=== PATIENT | female | born 1955 | race Caucasian/White ===

== ENCOUNTER → 2020-03-19 | Outpatient (CLI) | payer OTHER ==
[~2020-03-19] MED LIST: [UNRECOGNIZED DRUG - REMARK]
== END | disposition home or self-care (01) ==
LOC: LAB 13:14 → LAB SHORT 13:14
DX: R05 Cough (principal)
CPT/HCPCS: 87081

== ENCOUNTER → 2020-06-21 | Outpatient (CLI) | payer OTHER | LOC: LAB SHORT 12:26 → LAB 12:26 | DX: L03.116 Cellulitis of left lower limb (principal); L02.416 Cutaneous abscess of left lower limb | CPT/HCPCS: 87070; 87075; 87077; 87147; 87186; 87205 ==

== ENCOUNTER 2021-08-07 11:41 | Emergency (ER) | payer OTHER ==
[~2021-08-07] VITALS: Ht 177.8 cm; Wt 149.7 kg
[2021-08-07 12:43] LABS: BASOPHILS ABSOLUTE AUTO 0.01 K/mm3 (0.00-0.23); BASOPHILS PERCENT AUTO 0 % (0-2); EOSINOPHILS PERCENT AUTO 0 % (0-6); Hematocrit 42.9 % (33.0-51.0); Hemoglobin 14.2 g/dL (11.5-16.0); IMMATURE GRAN ABSOLUTE AUTO 0.01 K/mm3 (0.00-0.10); IMMATURE GRAN PERCENT AUTO 0 % (0-1); LYMPHOCYTES ABSOLUTE AUTO 0.91 K/mm3 (0.84-5.20); LYMPHOCYTES PERCENT AUTO 25 % (21-46); MONOCYTES PERCENT AUTO 8 % (4-13); Mean Corpuscular HGB 28.8 pg (26.0-34.0); Mean Corpuscular HGB Conc 33.1 g/dL (31.5-36.5); Mean Corpuscular Volume 87 fL (80-100); Mean Platelet Volume 10.8 fL (9.1-12.4); NEUTROPHILS ABSOLUTE AUTO 2.47 K/mm3 (1.96-9.15); NEUTROPHILS PERCENT AUTO 67 % (41-73); Platelet Count 109 K/mm3 (150-400); RDW Coefficient Variation 12.9 % (11.7-14.2); RDW Standard Deviation 41.1 fL (35.1-46.3); Red Blood Cell Count 4.93 M/mm3 (3.80-5.20)
[2021-08-07 13:00] LABS: Alanine Aminotransfer (ALT/SGP 65 U/L (12-78); Albumin, Blood 3.1 g/dL (3.4-5.0); Albumin/Globulin Ratio 0.7 (0.8-1.8); Alk Phos 78 U/L (50-136); Anion Gap 6 mmol/L (6-16); Aspartate Aminotrans (AST/SGOT 68 U/L (12-37); Bilirubin, Total 0.4 mg/dL (0.1-1.0); Blood Urea Nitrogen 18 mg/dL (8-24); Bun/Creatinine Ratio 19.8 (12.0-20.0); CO2, Blood 28 mmol/L (21-32); Calcium, Blood 8.8 mg/dL (8.5-10.1); Chloride, Blood 104 mmol/L (98-108); Creatinine, Blood 0.91 mg/dL (0.40-1.00); Globulin, Blood 4.2 g/dL (2.2-4.0); Glomerular Filtration Rate >60 (60-); Glucose, Blood 116 mg/dL (70-99); Potassium, Blood 3.8 mmol/L (3.5-5.5); Sodium, Blood 138 mmol/L (136-145); Total Protein, Blood 7.3 g/dL (6.4-8.2); Troponin I <0.015 ng/mL (0.000-0.040)
[2021-08-07] MEDS ORDERED: DEXA6 PO (15:29)
[2021-08-07] MEDS ORDERED: ONDA4ODT MM (15:29)
== END 2021-08-07 17:10 | disposition home or self-care (01) ==
LOC: ER 11:41
PROVIDERS: Physician Assistant
DX: U07.1 COVID-19 (principal); Z88.1 Allergy status to other antibiotic agents; Z88.8 Allergy status to other drugs, medicaments and biological substances
CPT/HCPCS: 36415; 71045; 71260; 80053; 84484; 85025; 85379; 93005; 93010; 96361; 96374; 99285-25; J2405; J7030; Q9967

== ENCOUNTER 2021-08-10 20:01 | Inpatient (IN) | payer OTHER ==
[~2021-08-10] VITALS: Ht 177.8 cm; Wt 126.4 kg
[~2021-08-10 20:01] MED LIST changes: +DEXA6 PO; +ONDA4ODT MM
[2021-08-10 20:45] LABS: BASOPHILS ABSOLUTE AUTO 0.02 K/mm3 (0.00-0.23); BASOPHILS PERCENT AUTO 0 % (0-2); EOSINOPHILS PERCENT AUTO 0 % (0-6); Hematocrit 40.1 % (33.0-51.0); Hemoglobin 13.3 g/dL (11.5-16.0); IMMATURE GRAN PERCENT AUTO 2 % (0-1); LYMPHOCYTES PERCENT AUTO 13 % (21-46); MONOCYTES ABSOLUTE AUTO 0.35 K/mm3 (0.16-1.47); MONOCYTES PERCENT AUTO 7 % (4-13); Mean Corpuscular HGB 28.9 pg (26.0-34.0); Mean Corpuscular HGB Conc 33.2 g/dL (31.5-36.5); Mean Corpuscular Volume 87 fL (80-100); Mean Platelet Volume 11.1 fL (9.1-12.4); NEUTROPHILS ABSOLUTE AUTO 4.07 K/mm3 (1.96-9.15); NEUTROPHILS PERCENT AUTO 78 % (41-73); Platelet Count 167 K/mm3 (150-400); RDW Standard Deviation 41.2 fL (35.1-46.3); Red Blood Cell Count 4.61 M/mm3 (3.80-5.20); White Blood Cell Count 5.24 K/mm3 (4.00-11.30)
[2021-08-10 20:58] LABS: Alanine Aminotransfer (ALT/SGP 76 U/L (12-78); Albumin, Blood 2.4 g/dL (3.4-5.0); Albumin/Globulin Ratio 0.5 (0.8-1.8); Alk Phos 69 U/L (50-136); Anion Gap 3 mmol/L (6-16); Aspartate Aminotrans (AST/SGOT 57 U/L (12-37); Bilirubin, Total 0.5 mg/dL (0.1-1.0); Blood Urea Nitrogen 16 mg/dL (8-24); Bun/Creatinine Ratio 21.9 (12.0-20.0); CO2, Blood 28 mmol/L (21-32); Calcium, Blood 8.8 mg/dL (8.5-10.1); Chloride, Blood 110 mmol/L (98-108); Creatinine, Blood 0.73 mg/dL (0.40-1.00); Globulin, Blood 4.6 g/dL (2.2-4.0); Glomerular Filtration Rate >60 (60-); Glucose, Blood 154 mg/dL (70-99); Potassium, Blood 3.7 mmol/L (3.5-5.5); Sodium, Blood 141 mmol/L (136-145); Troponin I <0.015 ng/mL (0.000-0.040)
[2021-08-11 04:04] LABS: Alanine Aminotransfer (ALT/SGP 72 U/L (12-78); Albumin, Blood 2.4 g/dL (3.4-5.0); Albumin/Globulin Ratio 0.5 (0.8-1.8); Alk Phos 66 U/L (50-136); Anion Gap 5 mmol/L (6-16); Aspartate Aminotrans (AST/SGOT 58 U/L (12-37); Bilirubin, Total 0.5 mg/dL (0.1-1.0); Blood Urea Nitrogen 16 mg/dL (8-24); Bun/Creatinine Ratio 23.4 (12.0-20.0); CO2, Blood 28 mmol/L (21-32); Calcium, Blood 8.5 mg/dL (8.5-10.1); Chloride, Blood 108 mmol/L (98-108); Creatinine, Blood 0.68 mg/dL (0.40-1.00); Globulin, Blood 4.4 g/dL (2.2-4.0); Glomerular Filtration Rate >60 (60-); Glucose, Blood 114 mg/dL (70-99); Potassium, Blood 4.1 mmol/L (3.5-5.5); Sodium, Blood 141 mmol/L (136-145); Total Protein, Blood 6.8 g/dL (6.4-8.2)
[2021-08-11 04:15] LABS: BASOPHILS ABSOLUTE AUTO 0.01 K/mm3 (0.00-0.23); BASOPHILS PERCENT AUTO 0 % (0-2); EOSINOPHILS PERCENT AUTO 0 % (0-6); Hematocrit 40.2 % (33.0-51.0); Hemoglobin 12.9 g/dL (11.5-16.0); IMMATURE GRAN ABSOLUTE AUTO 0.08 K/mm3 (0.00-0.10); IMMATURE GRAN PERCENT AUTO 1 % (0-1); LYMPHOCYTES ABSOLUTE AUTO 0.65 K/mm3 (0.84-5.20); LYMPHOCYTES PERCENT AUTO 10 % (21-46); MONOCYTES ABSOLUTE AUTO 0.42 K/mm3 (0.16-1.47); MONOCYTES PERCENT AUTO 7 % (4-13); Mean Corpuscular HGB 28.2 pg (26.0-34.0); Mean Corpuscular HGB Conc 32.1 g/dL (31.5-36.5); Mean Corpuscular Volume 88 fL (80-100); Mean Platelet Volume 10.9 fL (9.1-12.4); NEUTROPHILS ABSOLUTE AUTO 5.17 K/mm3 (1.96-9.15); NEUTROPHILS PERCENT AUTO 82 % (41-73); Platelet Count 167 K/mm3 (150-400); RDW Standard Deviation 42.2 fL (35.1-46.3); Red Blood Cell Count 4.57 M/mm3 (3.80-5.20); White Blood Cell Count 6.33 K/mm3 (4.00-11.30)
--- NOTE | 2021-08-11 05:44 | NUR ---
Shift Summary Pt arrived from ED at 0230. On arrival, SpO2 read 88% via oxymizer at 15L, RT placed Airvo on at 60L/90% until Pt recovered then switched to NRB at 15L, maintaining >90% SpO2. Pt was able to pivot transfer from cart to bed via stand-by assist. Pt is A&Ox4 and oriented to own limitations. Pt presented with very mild anxiety R/T current illness. Pt has been resting and unable to sleep since arrival. Pt voiced no other concerns or questions.
--- NOTE | 2021-08-11 07:57 | NUR ---
ASSUMPTION OF CARE NOTE PT IS ALERT AND ORIENTED X 4. PT STATED SHE DID NOT GET MUCH REST LAST NIGHT. SPO2 REMAINS >95% VIA NON-REBREATHER. PT IS AFEBRILE AND SBP RANGES IN 120'S. PT DENIED CHEST PAIN/PRESSURE. PER REPORT PT CAN AMBULATE TO BEDSIDE COMMODE W/ PIVOT ASSIST. PT IS CURRENTLY NPO; WILL COMMUNICATE TO DOCTOR ABOUT ORDERING DIET AND TRIALING HIGH FLOW NC. PT CURRENTLY RESTING AND WATCHING TV, CALL LIGHT IN REACH. WILL CONTINUE TO MONITOR.
--- NOTE | 2021-08-11 11:32 | NUR ---
CARE NOTE PT ALERT AND ORIENTED X 4 AND IS PLEASANT/COOPERATIVE W/ CARE. PT DENIED PAIN BUT STATED SHE "FEELS CRUMMY." PT ABLE TO GET SOME SLEEP THIS AM. SPO2 REMAINS >90% @ 15L/MIN VIA NON-REBREATHER. CALL LIGHT IN REACH. WILL CONTINUE TO MONITOR.
--- NOTE | 2021-08-11 12:31 | NUR ---
CARE NOTE IN ROOM W/ RESPIRATORY THERAPY NOW. PT WILL NOW BE ON HEATED HUMIDIFIED HIGH FLOW NC. SPO2 AT 90%. CALL LIGHT IN REACH. WILL CONTINUE TO MONITOR.
--- NOTE | 2021-08-11 18:18 | NUR ---
SHIFT SUMMARY PT IS ON HEATED HUMIDIFIED HIGH FLOW NASAL CANNULA @ 50L/MIN, 85% FIO2, SPO2 IN 90'S. PT HAS REMAINED ALERT AND ORIENTED X 4 T/O SHIFT AND DID EXPRESS ANXIETY THIS AFTERNOON. PT WAS MEDICATED FOR ANXIETY PER ORDERS AND WAS ABLE TO TAKE A NAP THIS AFTERNOON. PERIPHERAL IV IN R HAND IS SALINE LOCKED, DRESSING IS DRY, CLEAN/INTACT. PT REMAINS ON FULL LIQUID DIET BUT HAD VERY LITTLE INTAKE TODAY. THIS NURSE SPOKE W/ DR DICKENS ABOUT STARTING FLUIDS, ORDERS FOR NS @ 100ML/HR ORDERED. PT WAS A SBA TO BEDSIDE COMMODE AND SATURATIONS RANGED 86-90. SATURATIONS RETURNED TO >90% AT REST. NO OTHER ACUTE CHANGES NOTED. CALL LIGHT IN REACH. WILL CONTINUE TO MONITOR.
--- NOTE | 2021-08-11 19:55 | NUR ---
ASSUMED CARE PT IS ALERT AND ORIENTED X4. PT DENIES CHEST PAIN OR PRESSURE. DENIES GENERAL PAIN. PT DENIES CALF TENDERNESS. VITALS ARE STABLE AND IS ON HIGH FLOW THERAPY OF 50L 90%FIO2 WITH SATS OF 92%. PT REPORTS UNPRODUCTIVE COUGH. PT IS ABLE TO USE BSC BUT DESATS TO 80% UPON EXERTION. CALL LIGHT IS WITHIN REACH WILL CONTINUE TO MONITOR.
--- NOTE | 2021-08-11 20:45 | NUR ---
DESAT PT CONTINUOUS BIOX ALARMING W/ PT DESAT TO 79% ON AIRVO @ 50L, FIO2 90%. PT LYING IN BED, W/ NO ACTIVITY NOTED. AIRVO TEMPORARILY INCREASED TO 60L, FIO2 100%. PT ENCOURAGED TO PRONE W/ PT REFUSAL D/T "BACK PAIN". PT CAUTIONED ABOUT HIGH AIRVO SETTINGS & LIMITS W/ PT CONTINUED REFUSAL. PT THEN COUGHING, PRN COUGH MEDICATION PROVIDED PER EMAR. SPO2 W/ SLOW IMPROVAL. PT THEN ABLE TO BE TITRATED BACK DOWN TO 50L, FIO2 90%.
[2021-08-12 03:55] LABS: Hematocrit 39.1 % (33.0-51.0); Hemoglobin 12.6 g/dL (11.5-16.0); Mean Corpuscular HGB 28.5 pg (26.0-34.0); Mean Corpuscular HGB Conc 32.2 g/dL (31.5-36.5); Mean Corpuscular Volume 89 fL (80-100); Mean Platelet Volume 10.9 fL (9.1-12.4); Platelet Count 210 K/mm3 (150-400); RDW Coefficient Variation 12.8 % (11.7-14.2); RDW Standard Deviation 41.8 fL (35.1-46.3); Red Blood Cell Count 4.42 M/mm3 (3.80-5.20)
[2021-08-12 04:13] LABS: Alanine Aminotransfer (ALT/SGP 134 U/L (12-78); Albumin, Blood 2.1 g/dL (3.4-5.0); Albumin/Globulin Ratio 0.5 (0.8-1.8); Alk Phos 68 U/L (50-136); Anion Gap 2 mmol/L (6-16); Aspartate Aminotrans (AST/SGOT 96 U/L (12-37); Bilirubin, Total 0.5 mg/dL (0.1-1.0); Blood Urea Nitrogen 23 mg/dL (8-24); Bun/Creatinine Ratio 35.4 (12.0-20.0); CO2, Blood 28 mmol/L (21-32); Calcium, Blood 8.8 mg/dL (8.5-10.1); Chloride, Blood 112 mmol/L (98-108); Creatinine, Blood 0.65 mg/dL (0.40-1.00); Globulin, Blood 4.3 g/dL (2.2-4.0); Glomerular Filtration Rate >60 (60-); Glucose, Blood 145 mg/dL (70-99); Magnesium, Blood 2.8 mg/dL (1.6-2.4); Sodium, Blood 142 mmol/L (136-145); Total Protein, Blood 6.4 g/dL (6.4-8.2)
--- NOTE | 2021-08-12 06:00 | NUR ---
SHIFT SUMMARY PT IS ALERT AND ORIENTED. BP HAS BEEN STABLE. SHE HAS BEEN BRADYCARDIC IN THE HIGH 40'S. DENIES CARDIAC CHEST PAIN OR PRESSURE STS ONLY FROM COUGH. OXYGEN DEMAND HAS INCREASED AND IS NOW ON AIRVO 60L 90%FIO2 WITH SATS DROPPING INTO LOW 80'S WITH COUGHING. PT WAS EDUCATED ABOUT PRONING AND WAS ABLE TO PRONE AROUND 0500. PT STS THAT SHE HAS A HISTORY OF BACK PAIN AND PRONING WILL BE DIFFICULT FOR HER. THIS NURSE NOTIFIED HER THAT IF SHE BECOMES UNCOMFORTABLE WE CAN HELP WITH PAIN MANAGEMENT. PT HAS HAD A STRONG NON PRODUCTIVE COUGH T/O THE NIGHT AND HAS BEEN MEDICATED PER EMAR. CALL LIGHT IS WITHIN REACH.
--- NOTE | 2021-08-12 09:39 | NUR ---
[id number]: SAFE HANDOFF REC'D, ASSUMED CARE OF PT. PT IS ON HIFLOW O2 VIA AIRVO, CURRENTLY SET AT 60L/90% WITH SPO2 AT REST IN THE MID 90S, RESPIRATIONS ARE MILDLY TACHYPIC AND SHALLOW. SB WITH HR IN THE 50S PER AUTOMOTIVE GENERATOR REPAIRER. PT DENIES PAIN OR DISCOMFORT OTHER THAN DYSPNEA. PT REPORTS NEEDING TO VOID, ASSISTED TO THE BSC, SPO2 DROPPED DOWN TO THE UPPER 70S AND QUITE SLOW TO RECOVER AFTER GETTING BACK TO BED, ONCE SHE DID RECOVER AND THEN ATTEMPTED TO EAT BREAKFAST AND SPO2 DROPPED AGAIN TO THE MID TO UPPER 70S. PT DENIES ASPIRATION OF FOOD, PT PLACED ON NRB OVER HER HIFLOW CANNULA SHE CONTINUES TO MOUTH BREATHE. SPO2 UP TO THE MID 90S WITH THAT INTERVENTION, 929: SPOKE WITH DR DICKENS REGARDING THE LIKELY NEED FOR A GILMAN CATH AND VERBAL ORDER TAKEN FOR SUCH. SPOKE WITH PT'S ADY HOGAN AND HE STATES THAT PT DOES USE CPAP FOR SLEEP APNEA.
[2021-08-12 10:13] LABS: Source, Urine Catheter
[2021-08-12 10:21] LABS: Appearance, Urine Hazy (Clear); Bilirubin, Urine Neg (Neg); Blood, Urine Neg (Neg); Color, Urine Amber (P-Yellow); Glucose Qualitative, Urine Neg (Neg); Ketones, Urine Neg (Neg); Leukocyte Esterase, Urine Neg (Neg); Nitrite, Urine Neg (Neg); Protein, Urine 2+ (Neg); Urobilinogen, Urine 3+ (Normal)
[2021-08-12 11:04] LABS: Red Blood Cells, Urine 0-2 /hpf (0-2); White Blood Cells, Urine 0-2 /hpf (0-5)
[2021-08-12 11:05] LABS: Mucus Heavy (0-Heavy)
[2021-08-12 11:12] LABS: Squamous Epithelial Cells Few /hpf (Few)
[2021-08-12 11:16] LABS: Bacteria Rare /hpf
--- NOTE | 2021-08-12 11:31 | NUR ---
1100: PT TRANSFERRED TO ICU FOR CLOSER MONITORING, TRANPORTED IN BED ON HIFLOW O2 WELL NRB MASK AND WAS ABLE TO MAINTAIN SPO2 ON THAT.
--- NOTE | 2021-08-12 11:45 | NUR ---
TRANSFER TO ICU: REPORT RECEIVED FROM JENNIFER Garcia, PCU CIGAR BINDER. THE PT ARRIVED TO ICU-03 AT APPROX 1125 & IS ALERT/ ORIENTED TO ALL ON ARRIVAL. GENERALIZED WEAKNESS/ FATIGUE. LS ARE DIM/ COARSE T/O, PT ON AIRVO W/ SETTINGS: 55 L/MIN & 80% FIO2, PT ALSO ON NRB AT 15 L/MIN W/ O2 SATS > 90% ON AVG, DESATS TO 88% W/ COUGHING EPISODES. MONITOR SHOWS SB W/ HR 50s, HTN W/ INCREASED STIMULUS OR DYSPNEA. BT x4, PT HAS NO GI COMPLAINTS. GILMAN PATENT/ DRAINING. SKIN CONDITION OVERALL INTACT, Q2H REPOSITIONING TO MAINTAIN SKIN INTEGRITY. CALL TO DR DICKENS REGARDING THIS PT's TX TO ICU. SHE AGREES THAT THE PT SHOULD BE ICU STATUS & WOULD LIKE DR ALVARADO TO BE CONSULTED ALSO, ORDERS PLACED. SHE WILL SEE THE PT LATER TODAY. DR ALVARADO MADE AWARE OF THIS CONSULT BY THIS RN & WILL SEE THE PT SOON. PT's VSS, NO ACUTE DISTRESS. WILL CONTINUE TO MONITOR & UPDATE NEEDED.
--- NOTE | 2021-08-12 18:03 | NUR ---
SHIFT SUMMARY: PT REMAINS A&O TO ALL, ABLE TO MAKE NEEDS KNOWN. SHE IS USING CPAP 14, 85% FIO2 & TOLERATING WELL W/ O2 SATS > 90% ON AVG. LS DIM/ COARSE T/O. THE PT CONVERTED FROM SB TO AFIB W/ RVR, HR 140s AT APPROX 1521. BP STABLE AT THIS TIME & PT STS FEELING NO CP, PALPITATIONS, OR ANYTHING "DIFFERENT." MONITOR CURRENTLY SHOWS AFIB W/ HR 90-120s, BP STABLE AFTER CARDIZEM IVP PER EMAR & W/ CARDIZEM NOW INFUSING AT 5 MG/HR. PT HAS NO GI COMPLAINTS, NPO SINCE TRANSFER TO ICU R/T RESPIRATORY STATUS. GILMAN PATENT/ DRAINING YELLOW URINE. SKIN CONDITION OVERALL INTACT, Q2H REPOSITIONING TO MAINTAIN SKIN INTEGRITY. WILL CONTINUE TO MONITOR & REPORT OFF TO ONCOMING.
--- NOTE | 2021-08-12 19:30 | NUR ---
ASSUMPTION OF CARE RECEIVED REPORT AT 1905 FROM ORIANA DE PAZ. ASSUMED CARE OF PATIENT. PATIENT ALERT/ORIENTED IN BED WITH CPAP 14 FIO2 85% IN PLACE. 02 SATS ABOVE 95%. HEART RATE 120-130'S, STABLE B/P INCREASED CARDIZEM TO 10MG/HR FOR HR CONTROL. EDUCATED PATIENT REGARDING PRONING AND BENEFITS OF. PATIENT VERBALIZED UNDERSTANDING AND STATED "LETS GIVE IT A TRY". WILL PRONE UPON ADMINSRATION OF HS MEDICATIONS. REVEIWING ORDERS, WILL TREAT PRESCRIBED.
--- NOTE | 2021-08-12 22:10 | NUR ---
REPOSITION PATIENT DECLINED REPOSITIONING, REMAINS FAR RIGHT SIDE. RESTING COMFORTABLY WITH STABLE VITALS.
--- NOTE | 2021-08-12 23:00 | NUR ---
HEADACHE PATIENT USING CALL LIGHT REQUESTING TYLENOL FOR A HEADACHE. NOTIFIED DR. PATTERSON, RECEIVED ORDERS AND MEDICATED PRESCRIBED. WILL MONITOR FOR EFFECT.
--- NOTE | 2021-08-12 23:59 | NUR ---
REASSESSMENT NO ACUTE CHANGES FROM PREVIOUS ASSESSMENT. PATIENT STATES HEADACHE HAS RESOLVED, COUGHING IS IMPROVED SINCE GUAFENISIN GIVEN. TOLERATING CPAP 14, FIO2 85% WELL WITH SATS ABOVE 95%. VITALS STABLE, REMAINS IN AFIB RATE CONTROLLED ON CARDIZEM OF 5MG/HR. CONTINUING TO MONITOR.
--- NOTE | 2021-08-13 02:58 | NUR ---
RHYTHM CHANGES PATIENT CONVERTED TO SB/SR RATE 40-50'S AT 0238. VITALS STABLE, CARDIZEM REMAINED OFF. PATIENT A/O, REMAINS TOLERATING CPAP WITH SETTINGS UNCHANGED.
[2021-08-13 03:44] LABS: Hematocrit 38.7 % (33.0-51.0); Hemoglobin 12.6 g/dL (11.5-16.0); Mean Corpuscular HGB 28.8 pg (26.0-34.0); Mean Corpuscular HGB Conc 32.6 g/dL (31.5-36.5); Mean Corpuscular Volume 88 fL (80-100); Mean Platelet Volume 10.7 fL (9.1-12.4); Platelet Count 239 K/mm3 (150-400); RDW Coefficient Variation 12.9 % (11.7-14.2); RDW Standard Deviation 42.1 fL (35.1-46.3); Red Blood Cell Count 4.38 M/mm3 (3.80-5.20); White Blood Cell Count 8.93 K/mm3 (4.00-11.30)
--- NOTE | 2021-08-13 04:00 | NUR ---
REASSESSMENT NO ACUTE CHANGES FROM PREVIOUS ASSESSMENT. PATIENT TOLERATING CPAP 15, FIO2 85% WITH 02 SATS ABOVE 95%. SIPS OF WATER AND CRANBERRY JUICE PROVIDED PER PATIENT REQUEST. TOLERATED BREAK FROM CPAP FOR SEVERAL MINUTES, LOWEST 02 SAT OF 88%, RECOVERED QUICKLY BACK TO 96% WHEN CPAP PLACED. STRONG, MOIST COUGH PRESENT. CALL LIGHT IN REACH.
[2021-08-13 04:02] LABS: Alanine Aminotransfer (ALT/SGP 97 U/L (12-78); Albumin, Blood 1.9 g/dL (3.4-5.0); Albumin/Globulin Ratio 0.5 (0.8-1.8); Alk Phos 64 U/L (50-136); Anion Gap 3 mmol/L (6-16); Aspartate Aminotrans (AST/SGOT 39 U/L (12-37); Bilirubin, Total 0.5 mg/dL (0.1-1.0); Blood Urea Nitrogen 23 mg/dL (8-24); Bun/Creatinine Ratio 37.8 (12.0-20.0); CO2, Blood 28 mmol/L (21-32); Calcium, Blood 8.4 mg/dL (8.5-10.1); Chloride, Blood 111 mmol/L (98-108); Creatinine, Blood 0.61 mg/dL (0.40-1.00); Globulin, Blood 3.9 g/dL (2.2-4.0); Glomerular Filtration Rate >60 (60-); Glucose, Blood 136 mg/dL (70-99); Magnesium, Blood 2.5 mg/dL (1.6-2.4); Phosphorus, Blood 3.5 mg/dL (2.5-4.9); Potassium, Blood 4.1 mmol/L (3.5-5.5); Sodium, Blood 142 mmol/L (136-145); Total Protein, Blood 5.8 g/dL (6.4-8.2)
--- NOTE | 2021-08-13 06:16 | NUR ---
SHIFT SUMMARY PATIENT ALERT AND ORIENTED THROUGH SHIFT. ATTEMPTED PRONING, TOLERATED FOR 30 MINUTES. BEGAN SHIFT ON CARDIZEM 5MG/HR FOR HEART RATE CONTROL, AND AFIB RHYTHM, INCREASED CARDIZEM TO 10MG/HR CHARTED. AT 0238 PATIENT CONVERTED TO SINUS RICARDO RATE 40-50'S. MAINTAINED STABLE B/P'S. CPAP TOLERATED AT 14, FIO2 85% WITH 02 SATS ABOVE 95%. MEDICATED FOR COUGH AND HEADACHE WHICH RESOLVED WITH CHARTED PRN MEDICATIONS. REVIEWED LABS WITH NO REPLACEMENTS NEEDED. CALL LIGHT IN REACH, WILL REPORT TO ONCOMING RN.
--- NOTE | 2021-08-13 15:29 | NUR ---
Patient is lying in bed and alert. Patient tells me about how sick she is and how scared she is. She talks about her Faith devonte and the multiple family and friends praying for her. She also talks about some painful family unit complications. I provide anxiety containment, scripture reading, therapeutic listening and prayer. Patient responds well to all interventions and displays evidence of increased peace. I will continue to remain available to patient and family.
--- NOTE | 2021-08-13 18:45 | NUR ---
Ms. Goodman remains on the Bipap with CPAP settings: 12 and 60% FiO2. She denies shortness of breath although desats to 79% on airvo during meals. She has a persistent and strong cough. PRN guaifenesin-codeine and tessalon pearls were administered and provided relief. Physical therapy was consulted and helped the patient sit at the edge of her bed. PT's assessment was that the patient was strong, though desatted during coughing spells. PT recommends getting the patient up into a chair. Suggested transferring to chair to Ms. Goodman and she declined. Provided Ms. Villanueva with education on the importance of mobility related to her recovery. Patient verbalized understanding and stated, "I'm tired". Ms. Goodman stated that she would try to get into a chair tomorrow.
--- NOTE | 2021-08-13 20:27 | NUR ---
ASSUMED CARE @1900 PATIENT IS ALERT AND ORIENTED X4. LUNGS COARSE TO DIMINISHED T/O, NONPRODUCTIVE COUGH. CPAP 12, 60%, 02 SATS 93%. SB 40s-50s. BOWEL TONES ACTIVE. GILMAN DRAINING YELLOW URINE. PATIENT ABLE TO REPOSITION SELF, ASSITANCE PROVIDED NEEDED. TOLERATES SIPS OF WATER WELL. SISTER CALLED AND UPDATE PROVIDED.
--- NOTE | 2021-08-14 05:16 | NUR ---
PATIENT REMAINED ALERT AND ORIENTED THROUGH THE NIGHT. CPAP SETTINGS UNCHANGED 02 SATS >90%. TWO PERSON ASSIT WITH REPOSITIONING. ORAL CARE PROVIDED AND PATIENT ABLE TO TOLERATE SIPS OF WATER. REPORT GIVEN TO DOLORES DE PAZ, PATIENT TRANSFERRED TO PCU 14 AT APPROX 0500.
--- NOTE | 2021-08-14 06:11 | NUR ---
shift summary pt transferred to pcu from icu at 0500 - alert and oriented, able to make needs known. cooperative with plan of care. sats >90% on cpap settings. tele reading sinus iglesia 40's. campbell in place, draining to gravity. no c/o pain. no wounds. ivf running. no c/o pain. vss. call light within reach, bed in lowest position. will continue to monitor.
--- NOTE | 2021-08-14 12:30 | NUR ---
[id number]: SAFE HANDOFF REC'D, ASSUMED CARE OF PT, ASSESSMENT COMPLETED, PT ON CPAP OVERNIGHT, PLACED ON AIRVO PER RT BUT DID NOT TOLERATE (SPO2 DOWN TO THE LOW 80S) AND PLACED BACK ON CPAP AT 55%. PT DENIES PAIN, STATES THAT SHE IS FEELING A LITTLE BETTER. LR INFUSING AT 100 MLS/HR, PT CONTINUES ON STEROIDS AND ENOXAPARIN. [id number]: PLACED PT ON AIRVO IN ORDER TO EAT LUNCH, PT ABLE TO TOLERATE APPROX 15 MINUTES AT WHICH POINT HER SPO2 DECREASED TO 78% AND WAS PLACED BACK ON CPAP, INITALLY AT 100% FIO2 TO RECOVER AND THEN BACK TO 55%.
[2021-08-15 04:07] LABS: Hematocrit 37.4 % (33.0-51.0); Hemoglobin 12.3 g/dL (11.5-16.0); Mean Corpuscular HGB 28.8 pg (26.0-34.0); Mean Corpuscular HGB Conc 32.9 g/dL (31.5-36.5); Mean Corpuscular Volume 88 fL (80-100); Mean Platelet Volume 10.7 fL (9.1-12.4); Platelet Count 256 K/mm3 (150-400); RDW Coefficient Variation 12.4 % (11.7-14.2); RDW Standard Deviation 39.8 fL (35.1-46.3); Red Blood Cell Count 4.27 M/mm3 (3.80-5.20); White Blood Cell Count 8.89 K/mm3 (4.00-11.30)
[2021-08-15 04:22] LABS: Albumin, Blood 1.8 g/dL (3.4-5.0); Anion Gap 1 mmol/L (6-16); Blood Urea Nitrogen 20 mg/dL (8-24); Bun/Creatinine Ratio 34.2 (12.0-20.0); CO2, Blood 32 mmol/L (21-32); Calcium, Blood 8.6 mg/dL (8.5-10.1); Chloride, Blood 108 mmol/L (98-108); Creatinine, Blood 0.59 mg/dL (0.40-1.00); Glomerular Filtration Rate >60 (60-); Glucose, Blood 184 mg/dL (70-99); Phosphorus, Blood 2.8 mg/dL (2.5-4.9); Sodium, Blood 141 mmol/L (136-145)
--- NOTE | 2021-08-15 06:33 | NUR ---
SHIFT SUMMARY NO ACUTE EVENTS THIS SHIFT. VITAL SIGNS STABLE. TELE READS 50'S SINUS RICARDO AND BP 130'S AND 140'S. GILMAN DRAINING NANCY COLORED URINE TO GRAVITY. IV AND POWER GLIDE SALINE LOCKED. POWERGLIDE DRAWS BLOOD. ON CPAP 10 55% FIO2 AND SATS OVER 90%. PT REMAINS ON FULL LIQUID DIET. DESATS WHILE SWITCHING TO AIRVO FOR DRINKS. WILL CONTINUE TO MONITOR UNTIL REPORT GIVEN TO DAYSGABRIELA DE PAZ
--- NOTE | 2021-08-15 11:01 | NUR ---
[id number]: SAFE HANDOFF REC'D, ASSUMED CARE OF PT, ASSESSMENT COMPLETED. PT IS AWAKE, RESTING IN BED, STATES SHE HAD A GOOD NIGHT, SHE REMAINS ON CPAP AT 55%, SPO2 IN THE LOW 90S WITH THAT, PLACED ON AIRVO FOR BREAKFAST AND SHE DID DESAT TO THE MID 80s WITH THAT, THEN PLACED ON SIDE, ATTEMPTING TO GET PATIENT CLOSE TO PRONE POSSIBLE. [id number]: PT PLACED ON AIRVO AGAIN PER RT BUT SPO2 DROPPED DROPPED TO THE LOW 80s, REQUIRING PT TO BE PLACED BACK ON CPAP, SPO2 INCREASED TO LOW 90s. DR WALTER IN TO SEE PATIENT WELL.
--- NOTE | 2021-08-15 16:08 | NUR ---
Patient is lying in bed and alert. Patient tells me that she is feeling more stable and is resting well. Patient states that she still has a long ways to go and would appreciate prayer. I provide therapeutic listening and prayer. Patient responds well and shows signs of an elevated mood.
--- NOTE | 2021-08-15 19:07 | NUR ---
END OF SHIFT SUMMARY: PT ALTERNATING CPAP AND AIRVO OVER THE COURSE OF DAY, ENCOURAGED AND ASSISTED PT TO MOVE MUCH POSSIBLE AND TO TRY TO GET CLOSE TO PRONE SHE CAN, PT AGREEABLE TO THIS. APPETITE SLIGHTLY IMPROVED TODAY, PT ABLE TO TALK ON PHONE TO HER FAMILY ON SEVERAL OCCASIONS WHICH SHE SEEMED VERY HAPPY ABOUT. CONTINUE WITH NYSTATIN FOR THRUSH IN MOUTH. PLAN IS FOR CXR AND ABGs TOMORROW AM.
--- NOTE | 2021-08-16 05:47 | NUR ---
SHIFT SUMMARY PATIENT IS A&OX4 WITH SOME GENERALIZED WEAKNESS. FLAT AFFECT AND NOT VERY TALKATIVE. COMPLIANT WITH CARE. VSS. ON CPAP WITH 55% FIO2 SATING MID 90'S. PHILLIPS CONTINUES EVEN WITH VERY LITTLE ACTIVITY. TOLERATES AIRVO MAX SETTINGS FOR MEDS AND SIPS OF WATER FOR ONLY A FEW MIN AT A TIME. UNABLE TO PRONE D/T LARGE BREAST SIZE BUT ENCOURAGING BIG TURNS IN BED. TACHYPENIC AT TIMES. DRY COUGH NOTED AND PRN COUGH MEDS GIVEN WITH GOOD RELIEF. SB ON THE MONITOR HIGH 40'S-50'S ALL NIGHT. GILMAN PATENT DRAINING TO GRAVITY. NO PAIN OR DISTRESS UPON ASSESSMENT. WILL CONTINUE TO MONITOR UNTIL REPORT GIVEN TO DAYSHIFT RN.
[2021-08-16 05:52] LABS: PCO2 Arterial 44.3 mmHg (35-45); PO2 Arterial 63.1 mmHg (80-100); pH Blood Arterial 7.46 (7.35-7.45)
--- NOTE | 2021-08-16 14:17 | NUR ---
[id number]: SAFE HANDOFF REC'D, ASSUMED CARE OF PT, ASSESSMENT COMPLTED. PT IS RESTING IN BED, DENIES PAIN, HAS BEEN ON CPAP BUT TRIALED ON AIRVO BUT SPO2 DOWN TO LOW 80S AND PT PLACED MONET ON CPAP AT 80% UNTIL BREAKFAST. [id number]: PT ABLE TO COME OFF CPAP FOR BREAKFAST, REQUIRED 100% FIO2 AND SPO2 IN THE 82-86% RANGE. DR WALTER IN TO SEE PT AND DISCUSSED ATTEMPTING TO PRONE TODAY, PT IS AGREEABLE TO TRY. 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
--- NOTE | 2021-08-17 06:00 | NUR ---
SHIFT SUMMARY NO ACUTE CHANGES NOTED THROUGH THE NIGHT. PT REMAINS ON CPAP. SHE WAS ABLE TO TOLERATE SMALL BREAKS FOR DRINKS & PO MEDS. GILMAN REMAINS PATENT, CLEAR YELLOW URINE NOTED. PT ENC TO ASSIST WITH REPOSITIONING, CALLS FOR ASSISTANCE PRN. CALL LIGHT IN REACH
[2021-08-17 09:50] LABS: Hematocrit 42.6 % (33.0-51.0); Hemoglobin 13.8 g/dL (11.5-16.0); Mean Corpuscular HGB 28.3 pg (26.0-34.0); Mean Corpuscular HGB Conc 32.4 g/dL (31.5-36.5); Mean Corpuscular Volume 87 fL (80-100); Mean Platelet Volume 10.9 fL (9.1-12.4); Platelet Count 270 K/mm3 (150-400); RDW Coefficient Variation 12.6 % (11.7-14.2); RDW Standard Deviation 39.9 fL (35.1-46.3); Red Blood Cell Count 4.88 M/mm3 (3.80-5.20); White Blood Cell Count 8.61 K/mm3 (4.00-11.30)
[2021-08-17 10:03] LABS: Albumin, Blood 1.9 g/dL (3.4-5.0); Anion Gap 5 mmol/L (6-16); Blood Urea Nitrogen 18 mg/dL (8-24); Bun/Creatinine Ratio 30.7 (12.0-20.0); CO2, Blood 30 mmol/L (21-32); Calcium, Blood 8.8 mg/dL (8.5-10.1); Chloride, Blood 105 mmol/L (98-108); Creatinine, Blood 0.59 mg/dL (0.40-1.00); Glomerular Filtration Rate >60 (60-); Glucose, Blood 170 mg/dL (70-99); Phosphorus, Blood 3.4 mg/dL (2.5-4.9); Potassium, Blood 4.1 mmol/L (3.5-5.5); Sodium, Blood 140 mmol/L (136-145)
--- NOTE | 2021-08-17 13:56 | NUR ---
PT'S SISTER COLLIN PROVIDED PHONE UPDATE, QUESTIONS ANSWERED TO SATISFACTION.
--- NOTE | 2021-08-17 18:12 | NUR ---
PT ON CPAP MAJORITY OF SHIFT, ABLE TO TAKE BREAKS AND BE ON AIRVO FOR MEALS. WHEN ON AIRVO PT WOULD DESAT TO 80S, WOULD RECOVER TO LOW 90S WHEN REMINDED TO TAKE DEEP BREATHS THROUGH NOSE BETWEEN BITES. ALL OTHER VSS THIS SHIFT. PT IS ALERT AND ORIENTED, ABLE TO ASSIST WITH TURNING IN BED, ENCOURAGED AND ASSISTED WITH REPOSITIONING AND TURNING ON SIDES THROUGHOUT SHIFT. PT WORKED WITH PT, TOLERATED WELL.
--- NOTE | 2021-08-18 04:45 | NUR ---
WAS ABLE TO TITRATE PT'S CPAP SETTINGS TO CPAP 10 FIO2 90% SATS AT 96%. PT TOLERATING WELL.
--- NOTE | 2021-08-18 06:06 | NUR ---
SHIFT SUMMARY PT IS ALERT AND ORIENTED. THERE HAVE BEEN NO ACUTE CHANGES T/O THE NIGHT. PT WAS EDUCATED ABOUT PRONING BUT REFUSED. PT WAS ON CPAP 100% IN BEGINING OF SHIFT SHE IS NOW ON CPAP 80% FIO2 WITH SATS ABOVE 95%. PT DENIES CHEST PAIN. VITAL SIGNS ARE STABLE. PT HAS SLEPT WELL T/O THE NIGHT. GILMAN IS IN PLACE AND DRAINING TO GRAVITY. CALL LIGHT IS WITHIN REACH. WILL CONTINUE TO MONITOR.
--- NOTE | 2021-08-18 18:02 | NUR ---
SHIFT SUMMARY NO ACUTE EVENTS THIS SHIFT, VSS. PT REMAINED ON CPAP THIS SHIFT, ABLE TO TOLERATE BREAKS ON AIRVO FOR MEALTIMES, ROUGHLY HALF AN HOUR AT A TIME. PT DENIED CHEST/PAIN PRESSURE, DENIED OVERALL PAIN/DISCOMFORT. PT ENCOURAGED IN COUGHING AND DEEP BREATHING. PT COMPLAINED OF NASAL CONGESTION, DR. WALTER NOTIFIED AND ORDERS FOR NASAL SPRAY GIVEN.
[2021-08-19 04:07] LABS: Hemoglobin 13.8 g/dL (11.5-16.0); Mean Corpuscular HGB 28.8 pg (26.0-34.0); Mean Corpuscular HGB Conc 32.9 g/dL (31.5-36.5); Mean Corpuscular Volume 88 fL (80-100); Mean Platelet Volume 11.3 fL (9.1-12.4); Platelet Count 245 K/mm3 (150-400); RDW Coefficient Variation 12.7 % (11.7-14.2); RDW Standard Deviation 40.4 fL (35.1-46.3); White Blood Cell Count 11.29 K/mm3 (4.00-11.30)
[2021-08-19 04:25] LABS: Anion Gap 5 mmol/L (6-16); Blood Urea Nitrogen 24 mg/dL (8-24); Bun/Creatinine Ratio 39.7 (12.0-20.0); CO2, Blood 29 mmol/L (21-32); Calcium, Blood 8.8 mg/dL (8.5-10.1); Chloride, Blood 103 mmol/L (98-108); Creatinine, Blood 0.61 mg/dL (0.40-1.00); Glomerular Filtration Rate >60 (60-); Glucose, Blood 215 mg/dL (70-99); Phosphorus, Blood 3.7 mg/dL (2.5-4.9); Potassium, Blood 4.7 mmol/L (3.5-5.5); Sodium, Blood 137 mmol/L (136-145)
--- NOTE | 2021-08-19 05:20 | NUR ---
SHIFT SUMMARY PT A/OX4. ALERT, CALM AND APPROPRIATE WITH STAFF. ON TELE SB IN THE 50'S AND WHEN SLEEPING IN THE 40'S. ON CPAP FIO2 75% MAINTAINING O2 ABOVE 92%. DENIED ANY TYPE OF PAIN. BLE EDEMA. SKIN WARM TO TOUCH. GILMAN IN PLACE; YELLOW URINE OUTPUT. GOOD ORAL INTAKE. REFUSED PROINING BUT IS ABLE TO REPOSITION. NO ACUTE CHANGES. CALLS APPROPRIATELY. BED IN LOWEST POSITION AND CALL LIGHT NEAR PT. WILL CONT WITH PLAN OF CARE.
--- NOTE | 2021-08-19 10:55 | NUR ---
PT ALERT AND ORIENTED X4. NEURO WNL. DENIES NUMBNESS/TINGLING. PERRLA. ABLE TO MOVE ALL EXTREMITITES IN BED. TELE SHOWING SINUS RICARDO WITH HR 40-50'S. DENIES CHEST PAIN/PRESSURE. BP STABLE. BILATERAL LOWER EDEMA. SKIN OVERALL PALE AND FRAGILE. ON CPAP THIS AM AT 75% FIO2. ABLE TO TRANSFER TO HIGH FLOW NASAL CANNULA AT 70L AT 85% FOR MEALS. DESATS WITH MOVEMENT. LUNGS SOUNDING DIMINISHED. AT THIS TIME DRY COUGH WITH NO PRODUCTIVE SPUTUM. PATIENT REFUSES TO PRONE, WILL LAY ON SIDE. BOWEL TONES PRESENT. GILMAN CATH IN PLACE DRAINING CLEAR/YELLOW URINE TO GRAVITY. DENIES ABDOMINAL PAIN/NAUSEA. ACHS BLOOD SUGARS. Q2 TURNING. CALL LIGHT IN REACH. UPDATED SISTER ON PHONE. WILL CONTINUE TO MONITOR.
--- NOTE | 2021-08-19 18:30 | NUR ---
SHIFT SUMMARY: SEE PREVIOUS NOTE. NO ACUTE CHANGES. CPAP AND HF NASAL CANNULA SETTINGS REMAIN THE SAME. PATIENT ABLE TO TRANSFER TO HF NC WITH MEALS AND FOR ABOUT 4 HOURS TOTAL TODAY. TELE REMAINS UNCHANGED SINUS RICARDO. EATING AND TOLERATING MEALS WELL. GILMAN CATH REMAINS IN PLACE DRAINING CLEAR/YELLOW URINE. NO BM THIS SHIFT. VITAL SIGNS STABLE. WILL CONTINUE TO MONITOR AND REPORT OFF.
[2021-08-20 04:31] LABS: PCO2 Arterial 41.9 mmHg (35-45); PO2 Arterial 52.6 mmHg (80-100); pH Blood Arterial 7.48 (7.35-7.45)
--- NOTE | 2021-08-20 04:52 | NUR ---
SHIFT SUMMARY PT A/OX4. ON TELE SB: 40'S-50'S. VSS. ON HFNC 60L AND 80% FIO2 MAINTAINING O2 ABOVE 92%, WHEN REPOSITIONING IN BED DOES DESAT BUT RECOVERS QUICKLY. CONT'S TO REFUSE TO PRONE. DENIED ANY CHEST PAIN OR CHEST DISCOMFORT. GOOD PO INTAKE. GILMAN DRAINING TO GRAVITY; YELLOW URINE. STRONG BUE AND BLE WITH PALPABLE PULSES. BLE EDEMA NOTED. DENIED ANY N/V OR ABD. PAIN. ABLE TO CALL APPROPRIATELY. PT STATED THAT SHE WAS HAVING TROUBLE SLEEPING; MED ORDERED BUT REFUSED TO TAKE. NO ACUTE CHANGES. WILL CONT. WITH PLAN OF CARE.
--- NOTE | 2021-08-20 08:00 | NUR ---
pt laying in bed watching tv, ate all of her breakfast, a/ox3, pleasant and cooperative with care, follows commands well, denies complaints, ate 100% of meal this am, lungs are dim t/o, resp even and unlabored at rest, does get sob with any movement, no cough noted, currently on airvo hrr, tele in place running sb in the 50's, no edema to trace edema noted, ppp+1, cap refill <3sec, vs stable, afebrile, iv site to right wrist is very sluggish, powerglide to jenelle site is clear and patent, btx4, abd flat soft nontender, voids via campbell with rochelle urine, skin c/w/d, erasmo ibarra, call light in reach.
--- NOTE | 2021-08-20 13:52 | NUR ---
Spiritual care visit conducted. Patient tells me her frustration of not knowing the goal in terms of not knowing even a vague target date of when she may be to leave the hospital. She tells me it is hard to aim at a target if you don't know where it is. She has so much down time it it causes her anxiety because it is challenging for her not to worry when "everything seems to be hanging in a limbo state." We explore positive ways to look at her circumstances, explore sources of meaning and purpose and discuss the ways that she finds inspiration. I normalize her experience, reinforce helpful attitudes and practices and provide therapeutic listening, scripture recitation and prayer. Patient responds well to all interventions and voices appreciation for the visit. I will continue to remain available to patient and family.
--- NOTE | 2021-08-20 18:24 | NUR ---
PT HAD AN UNEVENTFUL DAY. SATS MAINTAINED OVER 90 EXCEPT WHEN EATING. NO COMPLAINTS OR NEEDS, CALL LIGHT IN REACH.
--- NOTE | 2021-08-21 03:46 | NUR ---
ON HFNC 50L 75% THROUGHOUT SHIFT. O2SAT MAINTAINED AT 96%. NONPRODUCTIVE COUGH WITH DEEP BREATHING, LUNG SOUNDS CLEAR TO AUSCLTATION. CONTINUED BOWEL REGAMIN, NO BM THIS SHIFT. ORDERS FOR OOB TOELRATED, PLAN FOR BSC TOLERATED TODAY PER ORDER AND PT REQUEST. DISCUSS POSSIBILITY FOR REMOVING GILMAN WITH DAYTEAM. SINUS RICARDO 50-60, ASYMPTOMATIC.
[2021-08-21 05:08] LABS: Hematocrit 42.7 % (33.0-51.0); Hemoglobin 14.1 g/dL (11.5-16.0); Mean Corpuscular HGB 28.8 pg (26.0-34.0); Mean Corpuscular Volume 87 fL (80-100); Mean Platelet Volume 11.1 fL (9.1-12.4); Platelet Count 186 K/mm3 (150-400); RDW Coefficient Variation 12.9 % (11.7-14.2); RDW Standard Deviation 40.5 fL (35.1-46.3); White Blood Cell Count 10.51 K/mm3 (4.00-11.30)
[2021-08-21 05:29] LABS: Anion Gap 6 mmol/L (6-16); Blood Urea Nitrogen 23 mg/dL (8-24); CO2, Blood 29 mmol/L (21-32); Chloride, Blood 103 mmol/L (98-108); Creatinine, Blood 0.59 mg/dL (0.40-1.00); Glomerular Filtration Rate >60 (60-); Glucose, Blood 186 mg/dL (70-99); Phosphorus, Blood 3.5 mg/dL (2.5-4.9); Potassium, Blood 4.7 mmol/L (3.5-5.5); Sodium, Blood 138 mmol/L (136-145)
--- NOTE | 2021-08-21 11:25 | NUR ---
PHYSICIAN NOTIFIED PT REPORTS CP AT 3-02/23. WORSENS WITH DEEP INSPIRATION AND COUGHING. ALSO WORSENS WITH STRAINING FOR BM. EKG DONE AND PHYSICIAN NOTIFIED. NO EKG CHANGES AT THIS TIME. NO REPORTS OF CHANGES ON TELEMETRY.
--- NOTE | 2021-08-21 17:54 | NUR ---
SHIFT SUMMARY PT ALERT AND ORIENTED X 4. HR STABLE. BP STABLE. OXYGEN SATURATION MAINTAINED ABOVE 90% ON AIRVO AT 50 L AND 85% FIO2. ATTEMPTED TO HAVE PT UP IN CHAIR THIS AM FOR BREAKFAST. PT DESATS QUICKLY AND TAKES 20-30 MIN TO RECOVER. USED CPAP FOR RECOVER. PT TOLERATING AIRVO WELL IN BED AT THIS TIME. PT ABLE TO TURN SELF IN BED. PT REPORTED CP THIS AM. SEE NOTES. GILMAN TO GRAVITY DRAIN. CALL LIGHT WIHIN REACH. WILL CONT TO MONITOR UNTIL REPORT GIVEN TO NIGHTSHIFT RN.
--- NOTE | 2021-08-22 07:30 | NUR ---
ASSUMED CARE: PT RESTING IN BED, AIRVO IN PLACE AT 50L WITH 70% FIO2. SINUS RICARDO AT 48 ON TELE AT THIS TIME. NO ACUTE NEEDS OR CONCERNS.
--- NOTE | 2021-08-22 18:49 | NUR ---
0700- Rec'd pt this morning, aox4, denies any pain, c/o mild SOB with exertion, VSS, afebrile, Sp02 of 93-97% on highflow O2 with FI02 of 70% being titrated for goal Sp0 of >92%. Pt tolerated her diet well, adequate amount of fluids consumed, campbell catheter drained and charted. Pt did not tolerate activity well per PT, they will attempt again tomorrow, will endorse pt care to line driver RN.
--- NOTE | 2021-08-23 05:26 | NUR ---
SHIFT SUMMARY PATIENT IS A&OX4 WITH SOME GENERALIZED WEAKNESS. ON AIRVO WITH SETTINGS 50L, 65% SATING MID 90'S ALL SHIFT. REFUSES PRONING BUT TURNS SELF SIDE TO SIDE WELL. NO COUGH OR DISTRESS NOTED. SR ON THE MONITOR MOSTLY 60'S-80'S BUT WHEN ASLEEP RICARDO DOWN AT TIMES INTO THE 50'S. VSS. TOLERATING ADA DIET WITHOUT ISSUE. GILMAN PATENT DRAINING TO GRAVITY. NO ACUTE CONCERNS AT THIS TIME. WILL CONTINUE PLAN OF CARE UNTIL REPORT GIVEN TO CUATE RN.
[2021-08-23 08:36] LABS: BASOPHILS ABSOLUTE AUTO 0.01 K/mm3 (0.00-0.23); BASOPHILS PERCENT AUTO 0 % (0-2); EOSINOPHILS ABSOLUTE AUTO 0.01 K/mm3 (0.00-0.68); EOSINOPHILS PERCENT AUTO 0 % (0-6); Hematocrit 43.1 % (33.0-51.0); Hemoglobin 14.4 g/dL (11.5-16.0); IMMATURE GRAN ABSOLUTE AUTO 0.05 K/mm3 (0.00-0.10); IMMATURE GRAN PERCENT AUTO 1 % (0-1); LYMPHOCYTES ABSOLUTE AUTO 1.94 K/mm3 (0.84-5.20); LYMPHOCYTES PERCENT AUTO 20 % (21-46); MONOCYTES ABSOLUTE AUTO 0.82 K/mm3 (0.16-1.47); MONOCYTES PERCENT AUTO 8 % (4-13); Mean Corpuscular HGB 28.9 pg (26.0-34.0); Mean Corpuscular HGB Conc 33.4 g/dL (31.5-36.5); Mean Corpuscular Volume 87 fL (80-100); Mean Platelet Volume 11.4 fL (9.1-12.4); NEUTROPHILS ABSOLUTE AUTO 6.96 K/mm3 (1.96-9.15); NEUTROPHILS PERCENT AUTO 71 % (41-73); Platelet Count 157 K/mm3 (150-400); RDW Coefficient Variation 12.9 % (11.7-14.2); RDW Standard Deviation 40.3 fL (35.1-46.3); Red Blood Cell Count 4.98 M/mm3 (3.80-5.20); White Blood Cell Count 9.79 K/mm3 (4.00-11.30)
[2021-08-23 08:53] LABS: Anion Gap 4 mmol/L (6-16); Blood Urea Nitrogen 23 mg/dL (8-24); Bun/Creatinine Ratio 32.6 (12.0-20.0); CO2, Blood 30 mmol/L (21-32); Calcium, Blood 8.9 mg/dL (8.5-10.1); Chloride, Blood 105 mmol/L (98-108); Creatinine, Blood 0.71 mg/dL (0.40-1.00); Glomerular Filtration Rate >60 (60-); Glucose, Blood 85 mg/dL (70-99); Potassium, Blood 3.8 mmol/L (3.5-5.5); Sodium, Blood 139 mmol/L (136-145)
--- NOTE | 2021-08-23 19:07 | NUR ---
0700-Rec'd pt, aox4, denies any pain. Attempted earlier at 0745 to dangle pt at bedside but her Sp02 dropped to 84%, pt noted pale and cyanotic, pt positioned back in bed, FI02 increased to 100% for O2 needs and later dropped to 70%, attempted again to dangle pt at bedside at 1510 but was unsuccessful due to increasing work of breathing and decrease in Sp02, otherwise pt is fine when in bed. VSS, Afebrile, ate all meals, no BM this shift, endorse pt care to production shift supervisor RN.
--- NOTE | 2021-08-24 06:22 | NUR ---
SHIFT SUMMARY PATIENT IS A&OX4 WITH SOME GENERALIZED WEAKNESS.ON AIRVO WITH SETTINGS 40L, 35% WITH GOOD TITRATION DOWN THROUGH SHIFT. DESATTING WITH MINIMAL EXERTION BUT RECOVERY TIMES IMPROVING. REFUSING PRONING. NO COUGH OR DISTRESS. SR ON THE MONITOR WITH RICARDO AT TIMES DURING SLEEP. TOLERATING ADA DIET WITHOUT ISSUE. GILMAN PATENT DRAINING TO GRAVITY. NO ACUTE CONCERNS AT THIS TIME. WILL CONTINUE PLAN OF CARE UNTIL REPORT GIVEN TO CUATE DE PAZ.
--- NOTE | 2021-08-24 06:43 | NUR ---
GILMAN CATH STILL IN PLACE UNTIL PATIENT IS MOVING AROUND IN ROOM BETTER. ONLY DANGLING WITH PT ON SIDE OF BED AND DESATS AND LOSES PROGRESS OXYGENATION CHOE WITH THESE EPISODES. WITH DISCUSS WITH DAY RN AND INFORM MD OF RECOMENDATION.
--- NOTE | 2021-08-24 11:00 | NUR ---
1030-Murray catheter discontinued/removed per order, will monitor pt for urine retention post catheter removal.
--- NOTE | 2021-08-24 18:16 | NUR ---
0700-Rec'd pt this morning, AOX4, denies any pain, c/o SOB on exertion, VSS, afebrile. Attempted to sit pt at the side of bed but became more SOB with decreasing Sp02, placed back in bed, attempted again with pt eating dinner at bedside but O2 needs increased while eating, transfer to medical floor put on hold, currently pt is in bed eating/finishing dinner, Sp02 of 89-92%, will endorse care to retail shift leader RN.
--- NOTE | 2021-08-25 06:18 | NUR ---
SHIFT SUMMARY NO ACUTE CHANGES THIS SHIFT. PT A+OX4. MAINTAINING SATS OVER 95% AT REST ON 8L NC. DESATS WITH ACTIVITY. HR HIGH 40'S AND 50'S AND BP STABLE. USES BED PLASCENCIA TO VOID. PT IN BED RESTING WITH CALL ALARM AT SIDE
--- NOTE | 2021-08-25 15:33 | NUR ---
SHIFT SUMMARY; ASSUMED CARE AT 0700. A/A/OX4. SHORTLY AFTER ASSUMING CARE ATTEMPTED TO SIT AT SIDE OF BED FOR BREAKFAST. BREATHING APPEARED LABORED AND SATS LOW 80'S. ASSISTED BACK TO BED. AIRVO STARTED BY RT WITH SETTINGS 90% 60L. TOLERATED WELL, SATS INCREASED TO MID TO LOW 90'S. USES BEDPAN WITH MINIMAL SAT DECREASE. FIO2 DECREASED TO 35% BY RT IN AFTERNOON. MAINTAING SATS OF LOW 90'S. LUNCH EATEN IN BED WITHOUT DIFFICULTY. WATCHING TV AND TEXTING ON PHONE THROUGHOUT DAY. REPOSITIONS SELF IN BED NEEDED. REPORT GIVEN TO MED FLOOR RN, MOVED TO MEDICAL FLOOR FOR IN HOUSE TRANSFER.
--- NOTE | 2021-08-25 16:52 | NUR ---
SHIFT SUMMARY PT TRANSFERRED TO UNIT FROM PCU AT APPROXIMATELY 1550. PT DENIES PAIN, N/V. PT HAD EPISODE OF DESATURATION WITH MOVEMENT THIS AM AND IS CURRENTLY ON AIRVO 50 L AT 35%. ENHANCED ISOLATION PRECUATIONS MAINTAINED T/O SHIFT. PT IS ON BEDREST USING THE BEDPAN. PT IS IN BED, CALL LIGHT IN REACH, LOW POSITION.
--- NOTE | 2021-08-26 06:10 | NUR ---
END OF SHIFT REPORT: Pt A&Ox4. On bed rest due to SOB and desats with activity. Using bed matamoros to limit activity. On 6LNC. Satting >93% when at rest. Denies pain or amny discomfort. Uneventful night. Pt resting at this time. Call light within reach, bed in lowest position.
--- NOTE | 2021-08-26 16:06 | NUR ---
Spiritual care visit conducted. Patient is lying in bed and alert. Patient immediately tells me about a visit she had with her who is legally seperated from and how draining and painful his visit was for her. She states that she did not think to tell the hospital that she did not want him to visit because he lives in [place]. She then explains more about her family unit complications. We explore sources of support and assistance and the importance of setting boundaries. I look at some ideas of conflict resolution and provide pastoral international student counselor and prayer. Patient responds well and shows signs of reduced stress and inner peace. I will continue to remain available.
--- NOTE | 2021-08-26 16:47 | NUR ---
pt progressing slowly. Affect good today brought her a quilt her friend brought in will follow up with prognosis and paln for future.
--- NOTE | 2021-08-26 17:30 | NUR ---
a+o, enjoying visit with family, remains in isolation, call light in reach, able to move in bed with therapy but remains afraid to try to stand , 6L via nc has kept the oximeter reading above 90 even when working with therapy, will continue to monitor and treat until share report with noc nurse
[2021-08-27 04:56] LABS: Hematocrit 38.4 % (33.0-51.0); Hemoglobin 12.9 g/dL (11.5-16.0); Mean Corpuscular HGB 29.6 pg (26.0-34.0); Mean Corpuscular HGB Conc 33.6 g/dL (31.5-36.5); Mean Corpuscular Volume 88 fL (80-100); Mean Platelet Volume 11.3 fL (9.1-12.4); Platelet Count 99 K/mm3 (150-400); RDW Coefficient Variation 13.2 % (11.7-14.2); RDW Standard Deviation 43.2 fL (35.1-46.3); Red Blood Cell Count 4.36 M/mm3 (3.80-5.20); White Blood Cell Count 8.42 K/mm3 (4.00-11.30)
[2021-08-27 05:23] LABS: Anion Gap 6 mmol/L (6-16); Blood Urea Nitrogen 25 mg/dL (8-24); Bun/Creatinine Ratio 35.5 (12.0-20.0); CO2, Blood 25 mmol/L (21-32); Calcium, Blood 8.7 mg/dL (8.5-10.1); Chloride, Blood 106 mmol/L (98-108); Creatinine, Blood 0.71 mg/dL (0.40-1.00); Glomerular Filtration Rate >60 (60-); Glucose, Blood 258 mg/dL (70-99); Phosphorus, Blood 3.7 mg/dL (2.5-4.9); Sodium, Blood 137 mmol/L (136-145)
--- NOTE | 2021-08-27 05:34 | NUR ---
END OF SHIFT SUMMARY: No acute events overnight. Pt satting >94 on 3LNC with minimal movement. Pt desats to low 80's with movement. Minimizing movement by using bed matamoros. Pt complaining of bloating and constipation but refuses stool softeners. Able to voice needs. VSS. Call light within reach.
--- NOTE | 2021-08-27 16:33 | NUR ---
SHIFT SUMMARY PT IMPROVING TODAY; LOOKING AND FEELING BETTER. ABLE TO GET UP TO CHAIR FOR A WHILE AND TO C FOR LRG BM. O2 NEEDS DECREASED AND HAVE REMAINED STABLE. PT ENCOURAGED TO HAVE VISITOR TO THIS AFTERNOON. PT HAS BEEN PLEASANT AND CO-OP TODAY. NO C/O. CALL LT IN REACH.
--- NOTE | 2021-08-27 19:49 | NUR ---
DR WALTER REQUESTING RT TO BE NOTIFIED FOR PT TO HAVE CPAP AT HS, SHE NORMALLY WEARS ONE AT HOME. RT NOTIFIED AND WILL REVIEW ORDER.
--- NOTE | 2021-08-27 20:09 | NUR ---
PT'S O2 NC DECREASED TO 2L EARLIER THIS AFTERNOON. PT'S BIOX HAS REMAINED AT 94-95% ON THE 2L.
[2021-08-28 04:10] LABS: BASOPHILS ABSOLUTE AUTO 0.01 K/mm3 (0.00-0.23); BASOPHILS PERCENT AUTO 0 % (0-2); EOSINOPHILS ABSOLUTE AUTO 0.01 K/mm3 (0.00-0.68); EOSINOPHILS PERCENT AUTO 0 % (0-6); Hematocrit 38.9 % (33.0-51.0); Hemoglobin 12.9 g/dL (11.5-16.0); IMMATURE GRAN ABSOLUTE AUTO 0.11 K/mm3 (0.00-0.10); IMMATURE GRAN PERCENT AUTO 1 % (0-1); LYMPHOCYTES ABSOLUTE AUTO 1.04 K/mm3 (0.84-5.20); LYMPHOCYTES PERCENT AUTO 11 % (21-46); MONOCYTES ABSOLUTE AUTO 0.44 K/mm3 (0.16-1.47); MONOCYTES PERCENT AUTO 5 % (4-13); Mean Corpuscular HGB 28.9 pg (26.0-34.0); Mean Corpuscular HGB Conc 33.2 g/dL (31.5-36.5); Mean Corpuscular Volume 87 fL (80-100); NEUTROPHILS ABSOLUTE AUTO 7.53 K/mm3 (1.96-9.15); NEUTROPHILS PERCENT AUTO 82 % (41-73); Platelet Count 101 K/mm3 (150-400); RDW Coefficient Variation 13.4 % (11.7-14.2); Red Blood Cell Count 4.47 M/mm3 (3.80-5.20); White Blood Cell Count 9.14 K/mm3 (4.00-11.30)
--- NOTE | 2021-08-28 04:30 | NUR ---
END OF SHIFT SUMMARY: No acute events overnight. PT able to get up with one person assist to BSC. She desats to upper 70's on 2L NC. Put on 3.5LNC. Able to come up and recover within 3 minutes of getting back to bed. Pt refuses CPAP tonight. Pt education given on need to wear it. Pt still refusing. Sats remaining above 90% when pt is resting on 3.5L NC. Able to voice needs. Call light within reach.
--- NOTE | 2021-08-28 17:18 | NUR ---
SUMMARY PT SITTING UP IN BED WATCHING TV, PT HAS BEEN PLEASANT AND COOPERATIVE WITH CARE, PT UP WITH 1P ASSIST, UP SEVERAL TIMES TODAY, TO THE CHAIR, TO THE COMMODE, UP WITH PT/OT, PT REMAINS ON 3-5L NC, VSS, WILL CONT TO MONITOR
[2021-08-29 05:04] LABS: Mean Platelet Volume 11.2 fL (9.1-12.4); Platelet Count 92 K/mm3 (150-400)
[2021-08-29 05:31] LABS: Anion Gap 5 mmol/L (6-16); Blood Urea Nitrogen 24 mg/dL (8-24); Bun/Creatinine Ratio 33.7 (12.0-20.0); CO2, Blood 29 mmol/L (21-32); Calcium, Blood 8.8 mg/dL (8.5-10.1); Chloride, Blood 106 mmol/L (98-108); Creatinine, Blood 0.71 mg/dL (0.40-1.00); Glomerular Filtration Rate >60 (60-); Glucose, Blood 112 mg/dL (70-99); Phosphorus, Blood 3.4 mg/dL (2.5-4.9); Potassium, Blood 3.7 mmol/L (3.5-5.5); Sodium, Blood 140 mmol/L (136-145)
--- NOTE | 2021-08-29 06:36 | NUR ---
SHIFT SUMMARY PT IS A 65 Y/O FEMALE, ADMITTED FOR PNA R/T COVID-19. SHE IS A&O X 4, 1PA TO THE BSC. NO C/O ACUTE PAIN OR NAUSEA, THOUGH PT REPORTS DYSPNEA WITH EXERTION. CURRENTLY ON 3-5L O2 VIA NC, SATTING > 90%. VITAL SIGNS STABLE. NO ACUTE CHANGES IN PT CONDITION NOTED. WILL CONTINUE TO MONITOR AND TREAT PER EMAR UNTIL HAND OFF TO DAY SHIFT RN.
--- NOTE | 2021-08-29 17:24 | NUR ---
SUMMARY PT SITTING UP IN BED WATCHING TV, PT HAS BEEN PLEASANT AND COOPERATIVE WITH CARE T/O THE DAY, PT WORKED WITH PT/OT TODAY, ACTIVITY TOLERANCE IS IMPROVING, PT HAS BEEN UP TO THE BATHROOM SEVERAL TIMES WITH MIN ASSIST WITH THE WALKER, FRIEND HAS BEEN IN TO VISIT, VSS, WILL CONT TO MONITOR
[2021-08-30 04:46] LABS: Mean Platelet Volume 10.5 fL (9.1-12.4); Platelet Count 99 K/mm3 (150-400)
--- NOTE | 2021-08-30 05:36 | NUR ---
SHIFT SUMMARY PT IS A 65 Y/O FEMALE, ADMITTED FOR PNA R/T COVID. SHE IS A&O X 3, 1PA TO THE BSC. SHE IS DYSPNIEC WITH EXERTION, ON 3-5L OF O2. NO C/O ACUTE PAIN OR NAUSEA. VITAL SIGNS STABLE. NO ACUTE CHANGES IN PT CONDITION NOTED DURING THE NIGHT. WILL CONTINUE TO MONITOR AND TREAT PER EMAR UNTIL HAND OFF TO DAY SHIFT RN.
--- NOTE | 2021-08-30 11:45 | NUR ---
Spiritual care visit conducted. Patient immediately tells me her fears about going to [facility] and her poor experiences with them, about possibly losing her house and about her spouse whom she is legally seperated from continue to push his way back into her life. I provide anxiety containment, gentle director of group counseling program and prayer. Patient responds well and shows signs of increased peace. I will continue to remain available.
--- NOTE | 2021-08-30 15:31 | NUR ---
Noted pt was very teaful this morning; her bedside RN reports pt began to cry and was on the phone with her sister. She had just been informed she is being admitted to [facility] for rehab. She has become severely deconditioned since johnny Covid and spending close to 3 weeks in the hospital. She does v/u regarding rehab, but she also says her mother went to [facility] and never returned. However, the pt is alert and oriented and only scheduled to go for intense physical rehabilitation, then return home. After talking with her sister and another friend, she and I talked as well, and I reminded her she is in charge of making decisions, and it's only a strong recommendation to go to SNF from the doctor, not an order. She agrees, and this greatly helped her mindset. She is agreeable to go, and appreciateive of the effort to make this happen for her.
[2021-08-30] MEDS ORDERED: Prednisone10 MG PO (15:55)
[2021-08-30] MEDS ORDERED: ACET325 PO (15:56)
[2021-08-30] MEDS ORDERED: Tessalon200 MG PO (15:56)
[2021-08-30] MEDS ORDERED: CALCIUM 600 +1 EA11 PO (15:57)
[2021-08-30] MEDS ORDERED: DOCU100 PO (15:58)
[2021-08-30] MEDS ORDERED: CLOT10 MT (15:58)
[2021-08-30] MEDS ORDERED: HUMALOG JU100 UNIT/2 (15:59)
[2021-08-30] MEDS ORDERED: MELATONIN5 M1 PO (15:59)
[2021-08-30] MEDS ORDERED: AQUAPHOR ITCH R28 GM TOP (16:00)
[2021-08-30] MEDS ORDERED: PANT40 PO (16:00)
[2021-08-30] MEDS ORDERED: XARELTO20 MG PO (16:01)
[2021-08-30] MEDS ORDERED: SENN187 PO (16:01)
--- NOTE | 2021-08-30 17:12 | NUR ---
SUMMARY PT BEING DISCHARGED TO [facility], PT MED PER EMAR FOR ANXIETY, WAITING FOR PHYSICIAN SCIENTIST
--- NOTE | 2021-08-30 17:49 | NUR ---
[facility] TAKEN SAFELY OUT VIA WHEELCHAIR
== END 2021-08-30 17:44 | DRG 177 ==
LOC: ER 20:01 → PCU 20:02 → ICUE 08-11 01:02 → PCU 08-11 01:02 → ICUE 08-12 10:56 → PCU 08-14 04:58 → MEDS 08-25 15:35
PROVIDERS: Emergency Medicine; Internal Medicine; ADMIT Internal Medicine
PROC: 8E0ZXY6 Isolation (ICD-10-PCS; principal; 2021-08-11)
PROC: 3E0333Z Introduction of Anti-inflammatory into Peripheral Vein, Percutaneous Approach (ICD-10-PCS; 2021-08-11)
PROC: XW033E5 Introduction of Remdesivir Anti-infective into Peripheral Vein, Percutaneous Approach, New Technology Group 5 (ICD-10-PCS; 2021-08-11)
PROC: 5A09557 Assistance with Respiratory Ventilation, Greater than 96 Consecutive Hours, Continuous Positive Airway Pressure (ICD-10-PCS; 2021-08-11)
DX: U07.1 COVID-19 (principal); J12.82 Pneumonia due to coronavirus disease 2019; J96.01 Acute respiratory failure with hypoxia; B37.81 Candidal esophagitis; L85.3 Xerosis cutis; G47.33 Obstructive sleep apnea (adult) (pediatric); E66.01 Morbid (severe) obesity due to excess calories; K59.00 Constipation, unspecified; D69.59 Other secondary thrombocytopenia; B37.2 Candidiasis of skin and nail; E11.65 Type 2 diabetes mellitus with hyperglycemia; T38.0X5A Adverse effect of glucocorticoids and synthetic analogues, initial encounter; I48.0 Paroxysmal atrial fibrillation; Z68.33 Body mass index [BMI] 33.0-33.9, adult; Z90.49 Acquired absence of other specified parts of digestive tract; Z90.710 Acquired absence of both cervix and uterus; Z98.890 Other specified postprocedural states; Z88.1 Allergy status to other antibiotic agents; Z88.8 Allergy status to other drugs, medicaments and biological substances; Z79.52 Long term (current) use of systemic steroids; Z79.899 Other long term (current) drug therapy
CPT/HCPCS: 36415; 36600; 51702; 71045; 71260; 80048; 80053; 80069; 81001; 82330; 82803; 82947; 83036; 83735; 83880; 84100; 84484; 85025; 85027; 85049; 85379; 86140; 93005; 93010; 94660; 94762; 97110; 97116; 97162; 97530; 99285-25; A9270; C1751; J1100; J1650; J2405; J2930; J7030; J7120; J7512; Q9967

== ENCOUNTER → 2021-10-03 | Outpatient (CLI) | payer OTHER ==
[~2021-10-03] MED LIST changes: +ACET325 PO; +AQUAPHOR ITCH R28 GM TOP; +CALCIUM 600 +1 EA11 PO; +CLOT10 MT; +DOCU100 PO; +HUMALOG JU100 UNIT/2; +MELATONIN5 M1 PO; +PANT40 PO; +Prednisone10 MG PO; +SENN187 PO; +Tessalon200 MG PO; +XARELTO20 MG PO
[2021-10-03 19:10] LABS: Anion Gap 4 mmol/L (6-16); Blood Urea Nitrogen 12 mg/dL (8-24); Bun/Creatinine Ratio 17.3 (12.0-20.0); CO2, Blood 28 mmol/L (21-32); Calcium, Blood 8.9 mg/dL (8.5-10.1); Chloride, Blood 109 mmol/L (98-108); Creatinine, Blood 0.69 mg/dL (0.40-1.00); Glomerular Filtration Rate >60 (60-); Glucose, Blood 129 mg/dL (70-99); Sodium, Blood 141 mmol/L (136-145)
== END | disposition home or self-care (01) ==
LOC: LAB 18:18 → LAB SHORT 18:18
PROVIDERS: Family Medicine
DX: I50.32 Chronic diastolic (congestive) heart failure (principal)
CPT/HCPCS: 80048

== ENCOUNTER → 2021-10-24 | Outpatient (CLI) | payer OTHER ==
[2021-10-24 13:14] LABS: BASOPHILS ABSOLUTE AUTO 0.03 K/mm3 (0.00-0.23); BASOPHILS PERCENT AUTO 1 % (0-2); EOSINOPHILS ABSOLUTE AUTO 0.22 K/mm3 (0.00-0.68); EOSINOPHILS PERCENT AUTO 4 % (0-6); Hemoglobin 13.3 g/dL (11.5-16.0); IMMATURE GRAN ABSOLUTE AUTO 0.01 K/mm3 (0.00-0.10); IMMATURE GRAN PERCENT AUTO 0 % (0-1); LYMPHOCYTES ABSOLUTE AUTO 1.61 K/mm3 (0.84-5.20); LYMPHOCYTES PERCENT AUTO 28 % (21-46); MONOCYTES ABSOLUTE AUTO 0.46 K/mm3 (0.16-1.47); MONOCYTES PERCENT AUTO 8 % (4-13); Mean Corpuscular HGB 29.2 pg (26.0-34.0); Mean Corpuscular HGB Conc 32.4 g/dL (31.5-36.5); Mean Corpuscular Volume 90 fL (80-100); Mean Platelet Volume 10.5 fL (9.1-12.4); NEUTROPHILS ABSOLUTE AUTO 3.38 K/mm3 (1.96-9.15); NEUTROPHILS PERCENT AUTO 59 % (41-73); Platelet Count 204 K/mm3 (150-400); RDW Coefficient Variation 13.6 % (11.7-14.2); RDW Standard Deviation 44.7 fL (35.1-46.3); Red Blood Cell Count 4.56 M/mm3 (3.80-5.20); White Blood Cell Count 5.71 K/mm3 (4.00-11.30)
[2021-10-24 13:29] LABS: Anion Gap 5 mmol/L (6-16); Blood Urea Nitrogen 17 mg/dL (8-24); Bun/Creatinine Ratio 28.5 (12.0-20.0); CO2, Blood 27 mmol/L (21-32); Calcium, Blood 9.2 mg/dL (8.5-10.1); Chloride, Blood 109 mmol/L (98-108); Glomerular Filtration Rate >60 (60-); Glucose, Blood 153 mg/dL (70-99); Sodium, Blood 141 mmol/L (136-145)
== END | disposition home or self-care (01) ==
LOC: LAB SHORT 12:33
PROVIDERS: Family Medicine
DX: R06.02 Shortness of breath (principal); R60.0 Localized edema; Z79.899 Other long term (current) drug therapy
CPT/HCPCS: 80048; 84443; 85025

== ENCOUNTER → 2025-06-21 | Outpatient (CLI) | payer OTHER | LOC: LAB 16:51 → LAB SHORT 16:51 | DX: Z79.891 Long term (current) use of opiate analgesic (principal) | CPT/HCPCS: 87086 ==